=== PATIENT | male | born 1955 | race Two or more races ===

== ENCOUNTER 2025-06-16 09:45 | Inpatient (IN) | payer OTHER ==
[~2025-06-16] VITALS: Ht 175.3 cm; Wt 89.4 kg
[2025-06-16] MEDS ORDERED: RESTORIL15 MG PO (14:09)
[2025-06-16] MEDS ORDERED: OSTEO BI-FLEX1 EAC3 PO (14:10)
[2025-06-16] MEDS ORDERED: CELEBREX200MG PO (14:10)
[2025-06-16] MEDS ORDERED: ZOLOFT50 MG PO (14:11)
[2025-06-16] MEDS ORDERED: METAMUCIL POWD575 G1 PO (14:11)
[2025-06-16] MEDS ORDERED: ROSUVASTATIN CAL5 MG PO (14:11)
[2025-06-16] MEDS ORDERED: MULTIPLE VITAM1 EAC2 PO (14:12)
[2025-06-23] MEDS ORDERED: LIDOCAINE HCL 1%/EPINEPHRINE 20ML VIAL IJ ONE (12:45)
[2025-06-23] MEDS ORDERED: METRONIDAZOLE/SODIUM CHLORIDE 500 MG/100 ML PIGGYBACK IV ONE (12:45)
[2025-06-23] MEDS ORDERED: BUPIVACAINE HCL 30 ML VIAL IJ ONE (12:45)
[2025-06-23] MEDS ORDERED: CEFTRIAXONE SODIUM 2,000 MG VIAL IV ONE (12:45)
[2025-06-23] MEDS ORDERED: MORPHINE SULFATE 4 MG/ML VIAL IV ONE ×4 (13:40→16:25)
[2025-06-23] MEDS ORDERED: DEXTROSE 50 % IN WATER 0.5 G/ML VIAL IV PRN (19:15)
[2025-06-23] MEDS ORDERED: MORPHINE SULFATE 4 MG/ML CARTRIDGE IV PRN (19:15)
[2025-06-23] MEDS ORDERED: RINGERS SOLUTION,LACTATED 1,000 ML IV SCH (19:15)
[2025-06-23] MEDS ORDERED: ONDANSETRON HCL 2 MG/ML VIAL IV PRN (19:15)
[2025-06-23] MEDS ORDERED: OxyCODONE HCL 5 MG TABLET (ROXICODONE) PO PRN (19:15)
[2025-06-23] MEDS ORDERED: SIMETHICONE 125 MG CAPSULE PO ONE (19:59)
[2025-06-23] MEDS ORDERED: ACETAMINOPHEN 500 MG GEL..CAP PO SCH (20:00)
[2025-06-23] MEDS ORDERED: ACETAMINOPHEN 500 MG GEL..CAP PO ONE (20:00)
[2025-06-23] MEDS ORDERED: FAMOTIDINE/PF 20 MG/2 ML VIAL ONE (20:00)
[2025-06-23 20:40] VITALS: BP 136/74; O2SAT 96
[2025-06-23] MEDS ORDERED: SIMETHICONE 125 MG CAPSULE PO SCH (21:00)
[2025-06-23] MEDS ORDERED: FAMOTIDINE/PF 20 MG/2 ML VIAL IV PUSH SCH (21:00)
[2025-06-23 23:12] LABS: BASO % 0.1 % (0.1-1.2); EOS # 0.00 (0.04-0.54); EOS % 0.0 % (0.7-7.0); LYMPH # 4.76 (1.18-3.74); LYMPH % 42.1 % (19.3-53.1); MEAN PLATELET VOLUME 10.70 fl (9.4-12.4); MONO # 1.09 (0.24-0.82); MONO % 9.6 % (4.7-12.5); NEUT # 5.42 (1.56-6.13); NEUT % 47.9 % (34.0-71.1); RED CELL DISTRIBUTION WIDTH 13.2 % (11.6-14.4)
[2025-06-24] MEDS ORDERED: METOCLOPRAMIDE HCL 5 MG/ML VIAL IV SCH (01:00)
[2025-06-24] MEDS ORDERED: GABAPENTIN 300 MG CAPSULE PO SCH (01:00)
[2025-06-24 01:33] VITALS: BP 116/67; O2SAT 95
[2025-06-24] MEDS ORDERED: CELECOXIB 200 MG CAPSULE PO SCH (05:00)
[2025-06-24 07:05] LABS: BASO % 0.2 % (0.1-1.2); EOS # 0.03 (0.04-0.54); EOS % 0.2 % (0.7-7.0); LYMPH # 9.57 (1.18-3.74); LYMPH % 62.5 % (19.3-53.1); MEAN PLATELET VOLUME 10.60 fl (9.4-12.4); MONO # 1.06 (0.24-0.82); MONO % 6.9 % (4.7-12.5); NEUT # 4.58 (1.56-6.13); NEUT % 30.0 % (34.0-71.1); RED CELL DISTRIBUTION WIDTH 13.3 % (11.6-14.4)
[2025-06-24 07:18] LABS: BUN CREA RATIO 8.0 (7.0-25.0); CREATININE SERUM 1.06 mg/dL (0.70-1.30); GFR 69.07; GLUCOSE FASTING 113.0 mg/dL (65-100); OSMOLALITY SERUM 281.0 MOSM/KG (275-295)
[2025-06-24 07:47] LABS: BAND MAN 1.0 %; LYMPHOCYTE MAN 70.0 %; MONOCYTE MAN 4.0 %; NEUTROPHILS MAN 24.0 %
[2025-06-24 08:00] VITALS: BP 95/55; O2SAT 98
[2025-06-24 08:31] LABS: ABG PH 7.415 (7.35-7.45)
[2025-06-24 08:32] LABS: ABG PO2 82.8 mmHg (80-100); BICARBONATE 24.2 mmol/l (23-25)
[2025-06-24 08:33] LABS: o2 21 %
[2025-06-24] MEDS ORDERED: HYOSCYAMINE SULFATE 0.125 MG TAB.SUBL SL SCH (09:00)
[2025-06-24] MEDS ORDERED: LACTULOSE 20 G/30 ML BLIST.PACK PO SCH (09:00)
[2025-06-24] MEDS ORDERED: SERTRALINE HCL 50 MG TABLET PO SCH (09:00)
[2025-06-24] MEDS ORDERED: Cyanocobalamin/Mecobalamin 1 TAB.SL SL NR (12:15)
[2025-06-24] MEDS ORDERED: SOD FERRIC GLUC COMPLX/SUCROSE 62.5 MG in 0.9 % SODIUM CHLORIDE 50 ML IV NR (12:15)
[2025-06-24 15:28] LABS: BASO % 0.2 % (0.1-1.2); EOS # 0.07 (0.04-0.54); EOS % 0.4 % (0.7-7.0); LYMPH # 10.33 (1.18-3.74); LYMPH % 59.6 % (19.3-53.1); MEAN PLATELET VOLUME 10.70 fl (9.4-12.4); MONO # 1.27 (0.24-0.82); MONO % 7.3 % (4.7-12.5); NEUT # 5.56 (1.56-6.13); NEUT % 32.2 % (34.0-71.1); RED CELL DISTRIBUTION WIDTH 13.3 % (11.6-14.4)
[2025-06-24] MEDS ORDERED: TEMAZEPAM 15 MG CAPSULE PO PRN (16:00)
[2025-06-24] MEDS ORDERED: HYOSCYAMINE SULFATE 0.125 MG TAB.SUBL SL STA (16:12)
[2025-06-24] MEDS ORDERED: FINASTERIDE 5 MG TABLET PO NR (16:15)
[2025-06-24] MEDS ORDERED: ENOXAPARIN SODIUM 40 MG/0.4 ML SYRINGE SUBCUTANEO SCH (17:00)
[2025-06-24] MEDS ORDERED: ROSUVASTATIN CALCIUM 10 MG TABLET PO SCH (17:00)
[2025-06-24 17:33] VITALS: BP 100/60; O2SAT 95
[2025-06-24] MEDS ORDERED: TAMSULOSIN HCL 0.4 MG CAP PO SCH (21:00)
[2025-06-25 00:39] VITALS: BP 104/64; O2SAT 96
[2025-06-25 06:42] LABS: BASO % 0.2 % (0.1-1.2); EOS # 0.01 (0.04-0.54); EOS % 0.1 % (0.7-7.0); LYMPH # 6.82 (1.18-3.74); LYMPH % 59.4 % (19.3-53.1); MEAN PLATELET VOLUME 10.90 fl (9.4-12.4); MONO # 0.74 (0.24-0.82); MONO % 6.4 % (4.7-12.5); NEUT # 3.86 (1.56-6.13); NEUT % 33.6 % (34.0-71.1); RED CELL DISTRIBUTION WIDTH 13.5 % (11.6-14.4)
[2025-06-25 06:45] LABS: BUN CREA RATIO 8.0 (7.0-25.0); CREATININE SERUM 1.15 mg/dL (0.70-1.30); GFR 62.87; GLUCOSE FASTING 110.0 mg/dL (65-100); OSMOLALITY SERUM 281.0 MOSM/KG (275-295)
[2025-06-25 07:38] LABS: BAND MAN 13.0 %; LYMPHOCYTE MAN 58.0 %; MONOCYTE MAN 7.0 %; NEUTROPHILS MAN 21.0 %
[2025-06-25 08:00] VITALS: BP 98/60; O2SAT 97
[2025-06-25] MEDS ORDERED: Cyanocobalamin/Mecobalamin 1 TAB.SL SL SCH (09:00)
[2025-06-25] MEDS ORDERED: ENOXAPARIN SODIUM 40 MG/0.4 ML SYRINGE SUBCUTANEO SCH (09:00)
[2025-06-25] MEDS ORDERED: FINASTERIDE 5 MG TABLET PO SCH (09:00)
[2025-06-25] MEDS ORDERED: SOD FERRIC GLUC COMPLX/SUCROSE 62.5 MG in 0.9 % SODIUM CHLORIDE 50 ML IV SCH (09:00)
[2025-06-25 16:47] VITALS: BP 98/58; O2SAT 95
[2025-06-26] VITALS: BP 99/61; O2SAT 95
[2025-06-26 08:30] VITALS: BP 121/68
[2025-06-26 16:28] VITALS: BP 105/55; O2SAT 96
== END 2025-06-26 18:41 | disposition home or self-care (01) | DRG 330 ==
LOC: SURH 06-23 09:45 → O/R 06-23 11:12 → SURH 06-23 14:15
PROVIDERS: Internal Medicine Geriatric Medicine; ADMIT Colon & Rectal Surgery; ATTEND Colon & Rectal Surgery
PROC: 0DBP4ZZ Excision of Rectum, Percutaneous Endoscopic Approach (ICD-10-PCS; 2025-06-23)
PROC: 0DTN4ZZ Resection of Sigmoid Colon, Percutaneous Endoscopic Approach (ICD-10-PCS; principal; 2025-06-23 14:15)
DX: K57.32 Diverticulitis of large intestine without perforation or abscess without bleeding (principal); K92.1 Melena; R93.5 Abnormal findings on diagnostic imaging of other abdominal regions, including retroperitoneum; D64.9 Anemia, unspecified

== ENCOUNTER 2025-07-06 20:50 | Inpatient (IN) | payer OTHER ==
[~2025-07-06] VITALS: Ht 175.3 cm; Wt 86.2 kg
[~2025-07-06 20:50] MED LIST: CELEBREX200MG PO; METAMUCIL POWD575 G1 PO; MULTIPLE VITAM1 EAC2 PO; OSTEO BI-FLEX1 EAC3 PO; RESTORIL15 MG PO; ROSUVASTATIN CAL5 MG PO; ZOLOFT50 MG PO
--- NOTE | 2025-07-06 21:01 | NUR ---
PACIENTE ALERTA Y ORIENTADO X3 QUIEN REFIERE VENIR POR DOLOR ABDOMINAL DESDE HOY AL MEDIO SEAN. REFIERE HACE 2 SEMANAS FUE OPERADO POR DR. STUART POR DIVERTICULICO. REFIERE SAUNDRA VOMITADO 3
[2025-07-06] MEDS ORDERED: FAMOTIDINE/PF 20 MG in 0.9 % SODIUM CHLORIDE 8 ML IV PUSH STA (21:22)
[2025-07-06] MEDS ORDERED: MORPHINE SULFATE 4 MG/ML VIAL IV ONE (21:30)
[2025-07-06] MEDS ORDERED: 0.9 % SODIUM CHLORIDE 1,000 ML IV SCH (21:30)
[2025-07-06] MEDS ORDERED: ONDANSETRON HCL 2 MG/ML VIAL IV ONE (21:30)
[2025-07-06 21:52] LABS: BASO % 0.2 % (0.1-1.2); EOS # 0.02 (0.04-0.54); EOS % 0.1 % (0.7-7.0); LYMPH # 9.43 (1.18-3.74); LYMPH % 50.4 % (19.3-53.1); MEAN PLATELET VOLUME 10.10 fl (9.4-12.4); MONO # 1.16 (0.24-0.82); MONO % 6.2 % (4.7-12.5); NEUT # 7.95 (1.56-6.13); NEUT % 42.5 % (34.0-71.1); RED CELL DISTRIBUTION WIDTH 14.2 % (11.6-14.4)
--- NOTE | 2025-07-06 21:54 | NUR ---
PTE ALERTA.ESTABLE Y ORIENTADO.SE EDUCA SOBRE EL TRATAMIENTO QUE RECIBIRA EN [facility] REFIERE ENTENDER.SE LE GREG MUESTRAS DE [place] Y SE LE ADMINISTRA MEDICAMENTOS DI ORDEN MEDICA
[2025-07-06 22:17] LABS: ALT/SGPT 27.0 U/L (12-78); AST/SGOT 16.0 U/L (15-37); BILIRUBIN TOTAL 0.77 mg/dL (0.3-1.2); BUN CREA RATIO 12.0 (7.0-25.0); CREATININE SERUM 1.37 mg/dL (0.70-1.30); GFR 51.37; GLOBULINA 3.8 G/DL (2.4-3.5); GLUCOSE FASTING 176.0 mg/dL (65-100); OSMOLALITY SERUM 278.0 MOSM/KG (275-295)
[2025-07-06] MEDS ORDERED: METRONIDAZOLE/SODIUM CHLORIDE 500 MG/100 ML PIGGYBACK IV ONE (23:00)
[2025-07-06] MEDS ORDERED: CIPROFLOXACIN IN 5 % DEXTROSE 400 MG/200 ML PIGGYBAG IV ONE (23:00)
[2025-07-07] MEDS ORDERED: ONDANSETRON HCL 4 MG in 0.9 % SODIUM CHLORIDE 50 ML IV PRN (00:15)
[2025-07-07] MEDS ORDERED: MORPHINE SULFATE 4 MG/ML CARTRIDGE IV PRN (00:15)
[2025-07-07 01:20] VITALS: BP 128/80; O2SAT 96
[2025-07-07 01:21] LABS: INR 1.04
[2025-07-07] MEDS ORDERED: hydrALAZINE HCL 20 MG VIAL IV PRN (06:00)
[2025-07-07 06:15] VITALS: BP 120/82; O2SAT 96
[2025-07-07 07:06] LABS: BASO % 0.2 % (0.1-1.2); EOS # 0.00 (0.04-0.54); EOS % 0.0 % (0.7-7.0); LYMPH # 9.57 (1.18-3.74); LYMPH % 47.1 % (19.3-53.1); MEAN PLATELET VOLUME 10.50 fl (9.4-12.4); MONO # 1.50 (0.24-0.82); MONO % 7.4 % (4.7-12.5); NEUT # 8.98 (1.56-6.13); NEUT % 44.2 % (34.0-71.1); RED CELL DISTRIBUTION WIDTH 14.6 % (11.6-14.4)
[2025-07-07 08:00] VITALS: BP 117/81; O2SAT 95
[2025-07-07 08:15] LABS: BAND MAN 1.0 %; LYMPHOCYTE MAN 53.0 %; MONOCYTE MAN 3.0 %; NEUTROPHILS MAN 43.0 %
[2025-07-07 08:49] LABS: BUN CREA RATIO 14.0 (7.0-25.0); CREATININE SERUM 1.61 mg/dL (0.70-1.30); GFR 42.64; GLUCOSE FASTING 180.0 mg/dL (65-100)
[2025-07-07 08:50] LABS: OSMOLALITY SERUM 287.0 MOSM/KG (275-295)
[2025-07-07] MEDS ORDERED: ENOXAPARIN SODIUM 40 MG/0.4 ML SYRINGE SUBCUTANEO SCH (09:00)
[2025-07-07] MEDS ORDERED: CIPROFLOXACIN IN 5 % DEXTROSE 200 ML IV SCH (09:00)
[2025-07-07] MEDS ORDERED: FAMOTIDINE/PF 20 MG in 0.9 % SODIUM CHLORIDE 8 ML IV PUSH SCH (09:00)
[2025-07-07 10:28] LABS: URINE APPEARANCE Clear; URINE BILIRRUBIN Negative (NEGATIVE); URINE BLOOD Moderate; URINE COLOR Dark Yellow; URINE GLUCOSE Negative (NEGATIVE); URINE KETONE Trace (NEGATIVE); URINE LEUKOCYTE Negative; URINE NITRATE Negative; URINE UROBILINOGEN 0.2 E.U./dl
[2025-07-07 10:32] LABS: URINE BACTERIA 25.1 uL (0.0-1933); URINE CAST 5.57 uL (0.0-1.40); URINE EPITHELIAL CELLS 6.9 uL (0.0-38.8); URINE RBC 44.5 uL (0.0-20.8); URINE WBC 26.3 uL (0.0-23.2)
[2025-07-07 11:06] LABS: URINE PROTEIN 100 (NEGATIVE)
[2025-07-07 15:24] LABS: BUN CREA RATIO 20.0 (7.0-25.0); CHOL HDL RATIO 3.2 (0-5.0); CREATININE SERUM 1.15 mg/dL (0.70-1.30); GFR 62.87; GLUCOSE FASTING 120.0 mg/dL (65-100); HDL 36.0 mg/dl (40-60); LDL 55.0 mg/dl (0-130); OSMOLALITY SERUM 292.0 MOSM/KG (275-295); VLDL 24.0 (0-39)
[2025-07-07 16:00] VITALS: BP 120/75; O2SAT 95
[2025-07-07] MEDS ORDERED: AA 2.36%/D6.8W/FAT/E-LYTES NO9 1,440 ML IV SCH (17:00)
[2025-07-07] MEDS ORDERED: AMINO ACIDS 4.25 %/DEXTROSE 5% 1,000 ML PERIFERAL SCH (17:00)
[2025-07-07] MEDS ORDERED: PIPERACILLIN/TAZOBACTAM SODIUM 3.375 GM in 0.9 % SODIUM CHLORIDE 100 ML IV SCH (18:00)
[2025-07-07] MEDS ORDERED: PHENOL 177 ML BOTTLE MM PRN (18:30)
[2025-07-07] MEDS ORDERED: FAT EMULSIONS 250 ML IV SCH (21:00)
[2025-07-08 00:57] VITALS: BP 114/76; O2SAT 95
[2025-07-08 07:13] LABS: BASO % 0.3 % (0.1-1.2); EOS # 0.03 (0.04-0.54); EOS % 0.1 % (0.7-7.0); LYMPH # 14.91 (1.18-3.74); LYMPH % 63.3 % (19.3-53.1); MEAN PLATELET VOLUME 10.30 fl (9.4-12.4); MONO # 2.08 (0.24-0.82); MONO % 8.8 % (4.7-12.5); NEUT # 6.33 (1.56-6.13); NEUT % 27.0 % (34.0-71.1); RED CELL DISTRIBUTION WIDTH 15.3 % (11.6-14.4)
[2025-07-08 08:06] LABS: ALT/SGPT 13.0 U/L (12-78); AST/SGOT 9.0 U/L (15-37); BILIRUBIN TOTAL 0.47 mg/dL (0.3-1.2); BUN CREA RATIO 19.0 (7.0-25.0); CREATININE SERUM 1.5 mg/dL (0.70-1.30); GFR 46.27; GLOBULINA 2.3 G/DL (2.4-3.5); GLUCOSE FASTING 132.0 mg/dL (65-100); OSMOLALITY SERUM 291.0 MOSM/KG (275-295)
[2025-07-08 10:33] VITALS: BP 105/63; O2SAT 95
[2025-07-08 16:00] VITALS: BP 109/62; O2SAT 95
[2025-07-08] MEDS ORDERED: DIATRIZOATE MEGLUMINE, SODIUM 30 ML BOTTLE PO NR (18:35)
[2025-07-09 02:21] VITALS: BP 102/68; O2SAT 96
[2025-07-09] MEDS ORDERED: DIATRIZOATE MEGLUMINE, SODIUM 30 ML BOTTLE PO ONE (04:00)
[2025-07-09 08:00] VITALS: BP 113/66; O2SAT 97
[2025-07-09 15:45] LABS: BASO % 0.3 % (0.1-1.2); EOS # 0.16 (0.04-0.54); EOS % 1.1 % (0.7-7.0); LYMPH # 10.08 (1.18-3.74); LYMPH % 70.4 % (19.3-53.1); MEAN PLATELET VOLUME 10.20 fl (9.4-12.4); MONO # 0.49 (0.24-0.82); MONO % 3.4 % (4.7-12.5); NEUT # 3.47 (1.56-6.13); NEUT % 24.4 % (34.0-71.1); RED CELL DISTRIBUTION WIDTH 15.0 % (11.6-14.4)
[2025-07-09 16:00] VITALS: BP 122/65; O2SAT 95
[2025-07-09 16:12] LABS: BUN CREA RATIO 18.0 (7.0-25.0); CREATININE SERUM 0.94 mg/dL (0.70-1.30); GFR 79.34; GLUCOSE FASTING 91.0 mg/dL (65-100); OSMOLALITY SERUM 288.0 MOSM/KG (275-295)
[2025-07-09 16:46] LABS: LYMPHOCYTE MAN 68.0 %; MONOCYTE MAN 3.0 %; NEUTROPHILS MAN 27.0 %
[2025-07-09 16:47] LABS: BLAST MAN 2.0 %
[2025-07-09] MEDS ORDERED: LORazepam 2 MG/ML VIAL IV SCH (21:00)
[2025-07-10 01:01] VITALS: BP 123/53; O2SAT 96
[2025-07-10 06:01] LABS: BASO % 0.3 % (0.1-1.2); EOS # 0.28 (0.04-0.54); EOS % 2.4 % (0.7-7.0); LYMPH # 7.18 (1.18-3.74); LYMPH % 62.1 % (19.3-53.1); MEAN PLATELET VOLUME 10.00 fl (9.4-12.4); MONO # 1.47 (0.24-0.82); NEUT # 2.54 (1.56-6.13); NEUT % 22.1 % (34.0-71.1); RED CELL DISTRIBUTION WIDTH 14.6 % (11.6-14.4)
[2025-07-10 06:25] LABS: ERYTHROCYTE SEDIMENTATION RATE 28 mm/hr (0-20)
[2025-07-10 06:34] LABS: MONO % 12.7 % (4.7-12.5)
[2025-07-10 07:10] LABS: ALT/SGPT 12.0 U/L (12-78); AST/SGOT 10.0 U/L (15-37); BILIRUBIN TOTAL 0.58 mg/dL (0.3-1.2); BUN CREA RATIO 14.0 (7.0-25.0); CREATININE SERUM 0.93 mg/dL (0.70-1.30); GFR 80.32; GLOBULINA 2.4 G/DL (2.4-3.5); GLUCOSE FASTING 97.0 mg/dL (65-100); LDH 153.0 U/L (87-241); OSMOLALITY SERUM 289.0 MOSM/KG (275-295)
[2025-07-10 08:00] VITALS: BP 129/61; O2SAT 96
[2025-07-10] MEDS ORDERED: SOD FERRIC GLUC COMPLX/SUCROSE 62.5 MG in 0.9 % SODIUM CHLORIDE 50 ML IV NR (10:30)
[2025-07-10 12:27] LABS: EOSINOPHIL MAN 1.0 %; LYMPHOCYTE MAN 52.0 %; MONOCYTE MAN 1.0 %; NEUTROPHILS MAN 21.0 %
[2025-07-10 12:41] LABS: BLAST MAN 19.0 %
[2025-07-10 17:11] VITALS: BP 133/66; O2SAT 95
[2025-07-10] MEDS ORDERED: MULTIVIT INFUSN,ADULT 4,VIT K 10 ML VIAL IV SCH (19:27)
[2025-07-11 01:37] VITALS: BP 121/70; O2SAT 96
[2025-07-11 08:00] VITALS: BP 123/54; O2SAT 97
[2025-07-11] MEDS ORDERED: SOD FERRIC GLUC COMPLX/SUCROSE 62.5 MG in 0.9 % SODIUM CHLORIDE 50 ML IV SCH (09:00)
[2025-07-11 14:10] LABS: BASO % 0.6 % (0.1-1.2); EOS # 0.31 (0.04-0.54); EOS % 3.6 % (0.7-7.0); LYMPH # 5.90 (1.18-3.74); LYMPH % 67.7 % (19.3-53.1); MEAN PLATELET VOLUME 10.00 fl (9.4-12.4); MONO # 0.30 (0.24-0.82); MONO % 3.4 % (4.7-12.5); NEUT # 2.14 (1.56-6.13); NEUT % 24.5 % (34.0-71.1); RED CELL DISTRIBUTION WIDTH 14.1 % (11.6-14.4)
[2025-07-11 14:26] LABS: ALT/SGPT 26.0 U/L (12-78); AST/SGOT 22.0 U/L (15-37); BILIRUBIN TOTAL 0.54 mg/dL (0.3-1.2); BUN CREA RATIO 12.0 (7.0-25.0); CREATININE SERUM 0.81 mg/dL (0.70-1.30); GFR 94.21; GLOBULINA 2.3 G/DL (2.4-3.5); GLUCOSE FASTING 90.0 mg/dL (65-100); LDH 173.0 U/L (87-241); OSMOLALITY SERUM 289.0 MOSM/KG (275-295)
[2025-07-11 16:00] VITALS: BP 139/68; O2SAT 93
[2025-07-12 01:35] VITALS: BP 132/69; O2SAT 97
[2025-07-12 08:00] VITALS: BP 136/66; O2SAT 95
[2025-07-12] MEDS ORDERED: RINGERS SOLUTION,LACTATED 1,000 ML IV SCH (10:30)
[2025-07-12 16:00] VITALS: BP 149/80; O2SAT 97
[2025-07-13 01:02] VITALS: BP 122/64; O2SAT 95
[2025-07-13 07:18] LABS: INR 1.05
[2025-07-13 07:28] LABS: ALT/SGPT 35.0 U/L (12-78); AST/SGOT 19.0 U/L (15-37); BILIRUBIN TOTAL 0.51 mg/dL (0.3-1.2); BILIRUBIN,CONJUGATED 0.15 mg/dL (0.0-0.2); BUN CREA RATIO 8.0 (7.0-25.0); CHOL HDL RATIO 3.6 (0-5.0); CREATININE SERUM 0.85 mg/dL (0.70-1.30); GFR 89.11; GLOBULINA 2.5 G/DL (2.4-3.5); GLUCOSE FASTING 97.0 mg/dL (65-100); HDL 30.0 mg/dl (40-60); LDL 46.0 mg/dl (0-130); OSMOLALITY SERUM 287.0 MOSM/KG (275-295); VLDL 30.0 (0-39)
[2025-07-13 07:49] LABS: BASO % 0.5 % (0.1-1.2); EOS # 0.36 (0.04-0.54); EOS % 3.8 % (0.7-7.0); LYMPH # 6.55 (1.18-3.74); LYMPH % 69.0 % (19.3-53.1); MEAN PLATELET VOLUME 10.40 fl (9.4-12.4); MONO # 0.69 (0.24-0.82); MONO % 7.3 % (4.7-12.5); NEUT # 1.81 (1.56-6.13); NEUT % 19.1 % (34.0-71.1); RED CELL DISTRIBUTION WIDTH 14.1 % (11.6-14.4)
[2025-07-13 08:11] VITALS: BP 130/64; O2SAT 94
[2025-07-13 08:47] LABS: UREA CLEARANCE 47.8 ML/MIN
[2025-07-13] MEDS ORDERED: POTASSIUM CHLORIDE IN WATER 100 ML IV NR (12:00)
[2025-07-13 13:09] LABS: EOSINOPHIL MAN 4.0 %; LYMPHOCYTE MAN 65.0 %; MONOCYTE MAN 5.0 %; NEUTROPHILS MAN 17.0 %
[2025-07-13 13:12] LABS: BLAST MAN 8.0 %
[2025-07-13 16:30] VITALS: BP 139/73; O2SAT 96
[2025-07-14 00:39] VITALS: BP 141/57; O2SAT 98
[2025-07-14 07:42] LABS: BUN CREA RATIO 9.0 (7.0-25.0); CREATININE SERUM 0.82 mg/dL (0.70-1.30); GFR 92.88; GLUCOSE FASTING 97.0 mg/dL (65-100); OSMOLALITY SERUM 292.0 MOSM/KG (275-295)
[2025-07-14 08:46] VITALS: BP 128/63; O2SAT 97
[2025-07-14] MEDS ORDERED: SODIUM CHLORIDE 0.45 % 1,000 ML IV SCH (09:15)
[2025-07-14 17:03] VITALS: BP 120/74; O2SAT 95
[2025-07-14 19:56] VITALS: BP 154/71; O2SAT 97
[2025-07-15 01:16] VITALS: BP 134/77; O2SAT 99
[2025-07-15 18:01] VITALS: BP 108/66; O2SAT 97
[2025-07-16 02:22] VITALS: BP 133/74; O2SAT 98
[2025-07-16 07:00] LABS: BASO % 0.7 % (0.1-1.2); EOS # 0.34 (0.04-0.54); EOS % 3.8 % (0.7-7.0); LYMPH # 6.59 (1.18-3.74); LYMPH % 74.4 % (19.3-53.1); MEAN PLATELET VOLUME 11.10 fl (9.4-12.4); MONO # 0.61 (0.24-0.82); MONO % 6.9 % (4.7-12.5); NEUT # 1.23 (1.56-6.13); NEUT % 13.9 % (34.0-71.1); RED CELL DISTRIBUTION WIDTH 14.8 % (11.6-14.4)
[2025-07-16 07:16] LABS: BUN CREA RATIO 6.0 (7.0-25.0); CREATININE SERUM 1.02 mg/dL (0.70-1.30); GFR 72.2; GLUCOSE FASTING 96.0 mg/dL (65-100); OSMOLALITY SERUM 292.0 MOSM/KG (275-295)
[2025-07-16 07:47] LABS: EOSINOPHIL MAN 2.0 %; LYMPHOCYTE MAN 79.0 %; MONOCYTE MAN 4.0 %; NEUTROPHILS MAN 15.0 %
[2025-07-16 08:00] VITALS: BP 128/71; O2SAT 99
[2025-07-16 16:00] VITALS: BP 131/72; O2SAT 96
[2025-07-17 02:04] VITALS: BP 146/86; O2SAT 97
[2025-07-17 08:00] VITALS: BP 104/69; O2SAT 96
[2025-07-17] MEDS ORDERED: FUSION PLUS CA1 EACH PO (13:09)
[2025-07-17] MEDS ORDERED: FAMOTIDINE20 MG PO (13:09)
[2025-07-17] MEDS ORDERED: ABANEU-SL TABL1 EACH SL (13:09)
== END 2025-07-17 14:28 | disposition home or self-care (01) | DRG 388 ==
LOC: ER 20:50 → SURH 07-07 00:12
PROVIDERS: General Practice; Internal Medicine Hematology & Oncology; Internal Medicine Infectious Disease; Internal Medicine Nephrology; ADMIT Internal Medicine Geriatric Medicine; ATTEND Internal Medicine Geriatric Medicine
PROC: BW21ZZZ Computerized Tomography (CT Scan) of Abdomen and Pelvis (ICD-10-PCS; principal; 2025-07-06)
PROC: 0DH68UZ Insertion of Feeding Device into Stomach, Via Natural or Artificial Opening Endoscopic (ICD-10-PCS; 2025-07-07)
PROC: BW21YZZ Computerized Tomography (CT Scan) of Abdomen and Pelvis using Other Contrast (ICD-10-PCS; 2025-07-09)
PROC: 02HV33Z Insertion of Infusion Device into Superior Vena Cava, Percutaneous Approach (ICD-10-PCS; 2025-07-09)
PROC: 8E0ZXY6 Isolation (ICD-10-PCS; 2025-07-10)
PROC: BW21ZZZ Computerized Tomography (CT Scan) of Abdomen and Pelvis (ICD-10-PCS; 2025-07-13)
DX: K56.699 Other intestinal obstruction unspecified as to partial versus complete obstruction (principal); A41.9 Sepsis, unspecified organism; N17.8 Other acute kidney failure; R65.10 Systemic inflammatory response syndrome (SIRS) of non-infectious origin without acute organ dysfunction; I10 Essential (primary) hypertension; E78.49 Other hyperlipidemia; D72.828 Other elevated white blood cell count; G47.33 Obstructive sleep apnea (adult) (pediatric); E87.6 Hypokalemia; D64.9 Anemia, unspecified

== ENCOUNTER 2025-07-23 13:06 | Inpatient (IN) | payer OTHER ==
[~2025-07-23] VITALS: Ht 170.2 cm; Wt 86.2 kg
[~2025-07-23 13:06] MED LIST changes: +ABANEU-SL TABL1 EACH SL; +FAMOTIDINE20 MG PO; +FUSION PLUS CA1 EACH PO
[2025-07-23] MEDS ORDERED: ROSUVASTATIN CAL5 MG PO (14:04)
[2025-07-23] MEDS ORDERED: FAMOTIDINE20 MG PO (14:04)
[2025-07-23] MEDS ORDERED: RESTORIL15 M1 PO (14:04)
[2025-07-23] MEDS ORDERED: INTESTINEX680 M1 PO (14:05)
[2025-07-23] MEDS ORDERED: BARIUM SULFATE 450 ML ORAL.SUSP PO ONE (15:24)
[2025-07-23] MEDS ORDERED: ONDANSETRON HCL 2 MG/ML VIAL ONE (15:29)
[2025-07-23 15:47] LABS: BASO % 0.5 % (0.1-1.2); EOS # 0.17 (0.04-0.54); EOS % 1.3 % (0.7-7.0); LYMPH # 8.91 (1.18-3.74); LYMPH % 68.3 % (19.3-53.1); MEAN PLATELET VOLUME 10.70 fl (9.4-12.4); MONO # 1.09 (0.24-0.82); MONO % 8.4 % (4.7-12.5); NEUT # 2.77 (1.56-6.13); NEUT % 21.3 % (34.0-71.1); RED CELL DISTRIBUTION WIDTH 15.4 % (11.6-14.4)
[2025-07-23] MEDS ORDERED: MORPHINE SULFATE 4 MG/ML VIAL IV ONE ×2 (16:00→20:15)
[2025-07-23 16:16] LABS: URINE APPEARANCE Clear; URINE BILIRRUBIN Negative (NEGATIVE); URINE BLOOD Small; URINE COLOR Yellow; URINE GLUCOSE Negative (NEGATIVE); URINE KETONE Negative (NEGATIVE); URINE LEUKOCYTE Negative; URINE NITRATE Negative; URINE PROTEIN Negative (NEGATIVE); URINE UROBILINOGEN 0.2 E.U./dl
[2025-07-23 16:20] LABS: URINE BACTERIA 4.7 uL (0.0-1933); URINE EPITHELIAL CELLS 1.5 uL (0.0-38.8); URINE RBC 2.4 uL (0.0-20.8); URINE WBC 2.3 uL (0.0-23.2)
[2025-07-23 16:21] LABS: BUN CREA RATIO 16.0 (7.0-25.0); CREATININE SERUM 1.04 mg/dL (0.70-1.30); GFR 70.6; GLUCOSE FASTING 112.0 mg/dL (65-100); OSMOLALITY SERUM 285.0 MOSM/KG (275-295)
[2025-07-23 16:37] LABS: URINE CAST 0.00 uL (0.0-1.40)
[2025-07-23 16:54] LABS: LYMPHOCYTE MAN 56.0 %; MONOCYTE MAN 4.0 %; NEUTROPHILS MAN 26.0 %
[2025-07-23 16:55] LABS: BLAST MAN 7.0 %
[2025-07-23] MEDS ORDERED: HYOSCYAMINE SULFATE 0.125 MG TAB.SUBL ONE (17:23)
[2025-07-23] MEDS ORDERED: FAMOTIDINE/PF 20 MG/2 ML VIAL ONE (17:23)
[2025-07-23] MEDS ORDERED: HYOSCYAMINE SULFATE 0.125 MG TAB.SUBL SL ONE (17:30)
[2025-07-23] MEDS ORDERED: FAMOtidine 10 MG/ML (4ML VIAL) IV ONE (17:30)
[2025-07-23] MEDS ORDERED: 0.9 % SODIUM CHLORIDE 500 ML IV ONE (20:00)
[2025-07-23] MEDS ORDERED: PIPERACILLIN/TAZOBACTAM SODIUM 3.375 GM VIAL IV ONE ×2 (21:00→21:15)
[2025-07-23] MEDS ORDERED: 0.9 % SODIUM CHLORIDE 1,000 ML IV SCH (21:30)
[2025-07-23] MEDS ORDERED: FAMOTIDINE/PF 20 MG in 0.9 % SODIUM CHLORIDE 8 ML IV PUSH SCH (21:32)
[2025-07-23] MEDS ORDERED: ONDANSETRON HCL 4 MG in 0.9 % SODIUM CHLORIDE 50 ML IV PRN (21:45)
[2025-07-23] MEDS ORDERED: MORPHINE SULFATE 4 MG/ML CARTRIDGE IV PRN (21:45)
[2025-07-23] MEDS ORDERED: TEMAZEPAM 15 MG CAPSULE PO PRN (21:45)
[2025-07-24] MEDS ORDERED: PIPERACILLIN/TAZOBACTAM SODIUM 3.375 GM in DEXTROSE 5 % IN WATER 100 ML IV SCH
[2025-07-24 01:51] LABS: INR 1.0
[2025-07-24 04:02] VITALS: BP 130/76
[2025-07-24 04:40] VITALS: BP 133/76; O2SAT 96
[2025-07-24 08:27] VITALS: BP 110/70; O2SAT 95
[2025-07-24] MEDS ORDERED: ENOXAPARIN SODIUM 40 MG/0.4 ML SYRINGE SUBCUTANEO SCH (09:00)
[2025-07-24] MEDS ORDERED: BUPIVACAINE HCL/MPF 0.5% 30ML VIAL ONE (12:04)
[2025-07-24] MEDS ORDERED: CEFTRIAXONE SODIUM 2,000 MG VIAL ONE (12:05)
[2025-07-24] MEDS ORDERED: METRONIDAZOLE/SODIUM CHLORIDE 500 MG/100 ML PIGGYBACK IV ONE (12:05)
[2025-07-24] MEDS ORDERED: LIDOCAINE HCL 1%/EPINEPHRINE 20ML VIAL IJ ONE (14:31)
[2025-07-24] MEDS ORDERED: MORPHINE SULFATE 4 MG/ML CARTRIDGE IV PRN (19:15)
[2025-07-24] MEDS ORDERED: OxyCODONE HCL 5 MG TABLET (ROXICODONE) PO PRN (19:15)
[2025-07-24] MEDS ORDERED: RINGERS SOLUTION,LACTATED 1,000 ML IV SCH (19:15)
[2025-07-24] MEDS ORDERED: ONDANSETRON HCL 2 MG/ML VIAL IV PRN (19:15)
[2025-07-24] MEDS ORDERED: MORPHINE SULFATE 4 MG/ML VIAL IV ONE ×2 (19:30→20:20)
[2025-07-24] MEDS ORDERED: ONDANSETRON HCL 2 MG/ML VIAL ONE (19:46)
[2025-07-24] MEDS ORDERED: ONDANSETRON HCL 2 MG/ML VIAL IV ONE (19:55)
[2025-07-24] MEDS ORDERED: ACETAMINOPHEN 500 MG GEL..CAP PO SCH (20:00)
[2025-07-24] MEDS ORDERED: FAMOTIDINE/PF 20 MG/2 ML VIAL ONE (20:32)
[2025-07-24 21:00] VITALS: BP 120/70; O2SAT 95
[2025-07-24] MEDS ORDERED: FAMOTIDINE/PF 20 MG/2 ML VIAL IV PUSH SCH (21:00)
[2025-07-24] MEDS ORDERED: SIMETHICONE 125 MG CAPSULE PO SCH (21:00)
[2025-07-24] MEDS ORDERED: TAMSULOSIN HCL 0.4 MG CAP PO SCH (21:00)
[2025-07-25] MEDS ORDERED: GABAPENTIN 300 MG CAPSULE PO SCH (01:00)
[2025-07-25 01:18] VITALS: BP 101/63; O2SAT 97
[2025-07-25 08:00] VITALS: BP 95/59; O2SAT 93
[2025-07-25 08:07] LABS: BASO % 0.2 % (0.1-1.2); EOS # 0.00 (0.04-0.54); EOS % 0.0 % (0.7-7.0); LYMPH # 3.09 (1.18-3.74); LYMPH % 58.0 % (19.3-53.1); MEAN PLATELET VOLUME 11.80 fl (9.4-12.4); MONO # 0.77 (0.24-0.82); NEUT # 1.46 (1.56-6.13); NEUT % 27.4 % (34.0-71.1); RED CELL DISTRIBUTION WIDTH 15.3 % (11.6-14.4)
[2025-07-25 08:09] LABS: MONO % 14.4 % (4.7-12.5)
[2025-07-25 08:31] LABS: ALT/SGPT 25.0 U/L (12-78); AST/SGOT 17.0 U/L (15-37); BILIRUBIN TOTAL 1.13 mg/dL (0.3-1.2); BUN CREA RATIO 11.0 (7.0-25.0); CREATININE SERUM 1.05 mg/dL (0.70-1.30); GFR 69.83; GLOBULINA 2.2 G/DL (2.4-3.5); GLUCOSE FASTING 138.0 mg/dL (65-100); OSMOLALITY SERUM 285.0 MOSM/KG (275-295)
[2025-07-25] MEDS ORDERED: LACTULOSE 20 G/30 ML BLIST.PACK PO SCH (09:00)
[2025-07-25] MEDS ORDERED: HYOSCYAMINE SULFATE 0.125 MG TAB.SUBL SL SCH (09:00)
[2025-07-25 09:08] VITALS: BP 102/63
[2025-07-25 16:00] VITALS: BP 93/58; O2SAT 95
[2025-07-25] MEDS ORDERED: ENOXAPARIN SODIUM 40 MG/0.4 ML SYRINGE SUBCUTANEO SCH (17:00)
[2025-07-26 00:10] VITALS: BP 96/61; O2SAT 94
[2025-07-26 07:46] LABS: BASO % 0.4 % (0.1-1.2); EOS # 0.03 (0.04-0.54); EOS % 0.3 % (0.7-7.0); LYMPH # 5.33 (1.18-3.74); LYMPH % 48.0 % (19.3-53.1); MEAN PLATELET VOLUME 12.20 fl (9.4-12.4); MONO # 1.11 (0.24-0.82); MONO % 10.0 % (4.7-12.5); NEUT # 4.54 (1.56-6.13); NEUT % 40.8 % (34.0-71.1); RED CELL DISTRIBUTION WIDTH 15.8 % (11.6-14.4)
[2025-07-26 08:11] LABS: BUN CREA RATIO 16.0 (7.0-25.0); CREATININE SERUM 1.19 mg/dL (0.70-1.30); GFR 60.44; GLUCOSE FASTING 105.0 mg/dL (65-100); OSMOLALITY SERUM 282.0 MOSM/KG (275-295)
[2025-07-26 08:31] VITALS: BP 101/65; O2SAT 96
[2025-07-26 08:38] LABS: BAND MAN 2.0 %; BLAST MAN 1.0 %; LYMPHOCYTE MAN 47.0 %; MONOCYTE MAN 2.0 %; NEUTROPHILS MAN 48.0 %
[2025-07-26] MEDS ORDERED: ENOXAPARIN SODIUM 40 MG/0.4 ML SYRINGE SUBCUTANEO SCH (09:00)
[2025-07-26 16:00] VITALS: BP 107/64; O2SAT 95
[2025-07-26] MEDS ORDERED: MAGNESIUM SULFATE IN WATER 4GM/50ML PIGGYBAG IV ONE (18:30)
[2025-07-26 23:55] VITALS: BP 99/61; O2SAT 95
[2025-07-27 07:04] LABS: BASO % 0.3 % (0.1-1.2); EOS # 0.11 (0.04-0.54); EOS % 1.1 % (0.7-7.0); LYMPH # 4.60 (1.18-3.74); LYMPH % 46.0 % (19.3-53.1); MEAN PLATELET VOLUME 11.60 fl (9.4-12.4); MONO # 0.93 (0.24-0.82); MONO % 9.3 % (4.7-12.5); NEUT # 4.30 (1.56-6.13); NEUT % 43.0 % (34.0-71.1); RED CELL DISTRIBUTION WIDTH 15.6 % (11.6-14.4)
[2025-07-27 07:12] LABS: ALT/SGPT 18.0 U/L (12-78); AST/SGOT 9.0 U/L (15-37); BILIRUBIN TOTAL 0.58 mg/dL (0.3-1.2); BUN CREA RATIO 12.0 (7.0-25.0); CREATININE SERUM 1.04 mg/dL (0.70-1.30); GFR 70.6; GLOBULINA 2.3 G/DL (2.4-3.5); GLUCOSE FASTING 86.0 mg/dL (65-100); OSMOLALITY SERUM 286.0 MOSM/KG (275-295)
[2025-07-27 08:25] VITALS: BP 99/63; O2SAT 94
[2025-07-27 08:32] LABS: BAND MAN 3.0 %; EOSINOPHIL MAN 2.0 %; LYMPHOCYTE MAN 57.0 %; MONOCYTE MAN 3.0 %; NEUTROPHILS MAN 35.0 %
[2025-07-27] MEDS ORDERED: SOD FERRIC GLUC COMPLX/SUCROSE 62.5 MG in 0.9 % SODIUM CHLORIDE 50 ML IV SCH (09:00)
[2025-07-27] MEDS ORDERED: DIATRIZOATE MEGLUMINE, SODIUM 30 ML BOTTLE PO NR (10:00)
[2025-07-27] MEDS ORDERED: DEXTROSE 5 % AND 0.9 % NACL 1,000 ML IV SCH (11:15)
[2025-07-27 16:00] VITALS: BP 111/66; O2SAT 95
[2025-07-27 16:54] LABS: BASO % 0.1 % (0.1-1.2); EOS # 0.08 (0.04-0.54); EOS % 1.0 % (0.7-7.0); LYMPH # 3.15 (1.18-3.74); LYMPH % 38.1 % (19.3-53.1); MEAN PLATELET VOLUME 11.30 fl (9.4-12.4); MONO # 0.89 (0.24-0.82); MONO % 10.8 % (4.7-12.5); NEUT # 4.11 (1.56-6.13); NEUT % 49.8 % (34.0-71.1); RED CELL DISTRIBUTION WIDTH 15.1 % (11.6-14.4)
[2025-07-27 16:59] LABS: LYMPHOCYTE MAN 55.0 %; MONOCYTE MAN 1.0 %; NEUTROPHILS MAN 42.0 %
[2025-07-27 17:00] LABS: MYELOCYTE 1.0 %
[2025-07-28 01:01] VITALS: BP 100/62; O2SAT 97
[2025-07-28] MEDS ORDERED: PANTOPRAZOLE SODIUM 40 MG/VIAL VIAL IV SCH (06:00)
[2025-07-28 08:58] VITALS: BP 92/55; O2SAT 97
[2025-07-28 10:57] LABS: BASO % 0.1 % (0.1-1.2); EOS # 0.10 (0.04-0.54); EOS % 1.4 % (0.7-7.0); LYMPH # 3.91 (1.18-3.74); LYMPH % 54.5 % (19.3-53.1); MEAN PLATELET VOLUME 11.80 fl (9.4-12.4); MONO # 0.23 (0.24-0.82); MONO % 3.2 % (4.7-12.5); NEUT # 2.90 (1.56-6.13); NEUT % 40.4 % (34.0-71.1); RED CELL DISTRIBUTION WIDTH 15.1 % (11.6-14.4)
[2025-07-28] MEDS ORDERED: MULTIVIT INFUSN,ADULT 4,VIT K 10 ML VIAL IV SCH (12:00)
[2025-07-28] MEDS ORDERED: THIAMINE HCL 100 MG/ML 2 ML VIAL IV NR (13:40)
[2025-07-28] MEDS ORDERED: FOLIC ACID 1 MG TABLET PO NR (13:40)
[2025-07-28] MEDS ORDERED: METOCLOPRAMIDE HCL 10 MG in DEXTROSE 5 % IN WATER 50 ML IV SCH (14:00)
[2025-07-28 16:11] VITALS: BP 126/82; O2SAT 97
[2025-07-28 16:35] VITALS: BP 107/63; O2SAT 96
[2025-07-28] MEDS ORDERED: AA 4.25%/CALCIUM/LYTES/DEX 10% 1,000 ML CENTRAL SCH (17:00)
[2025-07-28] MEDS ORDERED: GABAPENTIN 100 MG CAPSULE PO SCH (17:00)
[2025-07-28] MEDS ORDERED: AA 4.25%/CAL/LYTES/DEXT 5% 1,000 ML PERIFERAL SCH (18:34)
[2025-07-28] MEDS ORDERED: GABAPENTIN 300 MG CAPSULE PO SCH (21:00)
[2025-07-29 01:42] VITALS: BP 116/67; O2SAT 99
[2025-07-29 08:56] VITALS: BP 121/54; O2SAT 94
[2025-07-29] MEDS ORDERED: THIAMINE HCL 100 MG/ML 2 ML VIAL IV SCH (09:00)
[2025-07-29] MEDS ORDERED: FOLIC ACID 1 MG TABLET PO SCH (09:00)
[2025-07-30 01:52] VITALS: BP 123/72; O2SAT 98
[2025-07-30 06:19] LABS: BASO % 0.3 % (0.1-1.2); EOS # 0.09 (0.04-0.54); EOS % 1.3 % (0.7-7.0); LYMPH # 3.59 (1.18-3.74); LYMPH % 51.7 % (19.3-53.1); MEAN PLATELET VOLUME 11.90 fl (9.4-12.4); MONO # 0.10 (0.24-0.82); MONO % 1.4 % (4.7-12.5); NEUT # 3.11 (1.56-6.13); NEUT % 44.7 % (34.0-71.1); RED CELL DISTRIBUTION WIDTH 14.7 % (11.6-14.4)
[2025-07-30 07:11] LABS: ALT/SGPT 20.0 U/L (12-78); AST/SGOT 18.0 U/L (15-37); BILIRUBIN TOTAL 0.29 mg/dL (0.3-1.2); BUN CREA RATIO 8.0 (7.0-25.0); CREATININE SERUM 0.61 mg/dL (0.70-1.30); GFR 130.68; GLOBULINA 2.4 G/DL (2.4-3.5); GLUCOSE FASTING 117.0 mg/dL (65-100); OSMOLALITY SERUM 289.0 MOSM/KG (275-295)
[2025-07-30 08:00] VITALS: BP 120/66; O2SAT 96
[2025-07-30] MEDS ORDERED: POTASSIUM PHOS,M-BASIC-D-BASIC 15 MM in 0.9 % SODIUM CHLORIDE 250 ML IV NR (08:15)
[2025-07-30] MEDS ORDERED: 0.9 % SODIUM CHLORIDE 1,000 ML IV SCH (08:15)
[2025-07-30] MEDS ORDERED: POTASSIUM CHLORIDE 20MEQ/100ML H2O PB IV NR (09:00)
[2025-07-30] MEDS ORDERED: NAPH,MB-DB/K PH,MBDB 1 PKT PACKET PO NR (12:30)
[2025-07-30] MEDS ORDERED: POTASSIUM CHLORIDE 8 MEQ TABLET PO SCH (17:00)
[2025-07-30 18:52] VITALS: BP 138/69; O2SAT 98
[2025-07-30] MEDS ORDERED: TEMAZEPAM 15 MG CAPSULE PO PRN (22:15)
[2025-07-31] VITALS: BP 128/67; O2SAT 94
[2025-07-31 08:00] VITALS: BP 131/59; O2SAT 99
[2025-07-31 16:19] VITALS: BP 128/74; O2SAT 95
== END 2025-07-31 17:58 | disposition home or self-care (01) | DRG 331 ==
LOC: SURH → ER 13:47 → SEC-K 22:19 → SURH 22:19
PROVIDERS: Emergency Medicine; General Practice; Internal Medicine; Internal Medicine Geriatric Medicine; Internal Medicine Infectious Disease; ADMIT Colon & Rectal Surgery; ATTEND Colon & Rectal Surgery
PROC: 0DNW4ZZ Release Peritoneum, Percutaneous Endoscopic Approach (ICD-10-PCS; 2025-07-24)
PROC: B54NZZZ Ultrasonography of Left Upper Extremity Veins (ICD-10-PCS; 2025-07-24)
PROC: 0DQ84ZZ Repair Small Intestine, Percutaneous Endoscopic Approach (ICD-10-PCS; principal; 2025-07-24 15:15)
PROC: BW21YZZ Computerized Tomography (CT Scan) of Abdomen and Pelvis using Other Contrast (ICD-10-PCS; 2025-07-27)
PROC: BW40ZZZ Ultrasonography of Abdomen (ICD-10-PCS; 2025-07-29)
DX: K56.51 Intestinal adhesions [bands], with partial obstruction (principal); D64.9 Anemia, unspecified